=== PATIENT | female | born 1935 | race Caucasian/White ===

== ENCOUNTER 2016-07-10 11:26 | Outpatient (CLI) | END 2016-07-10 11:27 | disposition home or self-care (01) | LOC: LAB 11:26 | PROVIDERS: ATTEND General Practice | DX: R23.8 Other skin changes (principal) | CPT/HCPCS: 36415; 87252 ==

== ENCOUNTER 2016-07-15 13:49 | Outpatient (CLI) ==
--- NOTE | 2016-07-15 15:48 | DI ---
Examination: Five radiographic images of the lumbar spine. Comparison: 11/09/2007. Reason for study: Lumbago. FINDINGS: There are five lumbar type vertebral bodies with sacralization of L5. There is narrowing of the intervertebral body disc space is seen throughout the lumbar spine. Vertebral body heights are well maintained. There is no evidence for acute fracture or listhesis. Degenerative changes ar e noted with anterior osteophyte formation. There is straightening of the lumbar lordotic curve. Fo raminal narrowing bilaterally may be accentuated by positioning. Impression: 1. No obvious fracture or listhesis. 2. Sacralization of L5. 3. Degenerative disease.
--- NOTE | 2016-07-15 15:53 | DI ---
EXAM: Three views of the thoracic spine HISTORY: Back pain most pronounced on the right side. COMPARISON: Lumbar spine x-rays same day FINDINGS: The thoracic spine demonstrates no acute compression fracture or subluxation. Scattered d isc space narrowing is present. There is no osteophyte formation. There is no lytic or blastic les ion. The adjacent soft tissues are unremarkable. 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
== END 2016-07-15 13:50 | disposition home or self-care (01) ==
LOC: RAD 13:49
PROVIDERS: ATTEND General Practice
DX: M54.41 Lumbago with sciatica, right side (principal)

== ENCOUNTER 2016-10-24 14:05 | Outpatient (CLI) ==
--- NOTE | 2016-10-24 14:40 | DI ---
EXAM: Three views of the left shoulder HISTORY: Left shoulder pain. COMPARISON: Left humerus x-rays 04/29/2011 FINDINGS: There is no cortical irregularity or displaced fracture of the left shoulder. There is mi ld degenerative change of the acromioclavicular joint and glenohumeral joint. There is no lytic or blastic lesion. The soft tissues are unremarkable. There is no lytic or blastic lesion identified. IMPRESSION: Degenerative disease of the left shoulder with no displaced fracture or dislocation.
== END 2016-10-24 14:06 | disposition home or self-care (01) ==
LOC: RAD 14:05
PROVIDERS: ATTEND General Practice
DX: M25.512 Pain in left shoulder (principal)

== ENCOUNTER 2016-11-11 10:50 | Outpatient (CLI) | payer OTHER ==
[2016-11-11 13:21] LABS: BASOPHILS # (AUTO) 0.1 K/uL (0-0.2); BASOPHILS % (AUTO) 0.9 % (0.0-3.0); EOSINOPHILS # (AUTO) 0.2 K/ul (0.0-0.7); EOSINOPHILS % (AUTO) 2.4 % (0.0-7.0); HEMATOCRIT 40.9 % (37.0-47.0); HEMOGLOBIN 13.7 g/dl (12.0-16.0); IMMATURE GRANULOCYTE % (AUTO) 0.4 % (0.0-5.0); LYMPHOCYTES # (AUTO) 1.4 K/uL (0.60-3.4); LYMPHOCYTES % (AUTO) 14.1 (10.0-50.0); MEAN CORPUSCULAR HGB CONC 33.5 (31.8-35.4); MEAN CORPUSCULAR VOLUME 92.5 fl (81.0-99.0); MONOCYTES # (AUTO) 0.6 K/uL (0.4-2.0); MONOCYTES % (AUTO) 6.2 (0-10); NEUTROPHILS # (AUTO) 7.4 K/ul (2.0-6.9); PLATELET COUNT 339 10^3/uL (140-440); RED BLOOD COUNT 4.42 10^6/ul (4.20-5.40)
[2016-11-11 13:37] LABS: ALBUMIN 3.9 g/dL (3.4-5.0); ALBUMIN/GLOBULIN RATIO 1.22; ANION GAP 12.9; BILIRUBIN,TOTAL 0.55 mg/dL (0.00-1.20); BILIRUBIN,URINE Negative (NEGATIVE); BUN/CREATININE RATIO 18.18; CALCIUM 9.6 mg/dL (8.2-10.2); CHOL/HDL RATIO 3.7 (4.5-5.5); CREATININE 0.66 mg/dL (0.60-1.30); KETONES,URINE Negative (NEGATIVE); LEUKOCYTE ESTERASE ,URINE Trace (NEGATIVE); NITRITE,URINE Negative (NEGATIVE); POTASSIUM 3.9 mmol/L (3.5-5.10); PROTEIN,URINE Negative (NEGATIVE); TOTAL PROTEIN 7.1 g/dL (5.8-8.1); URINE, BLOOD Trace-lysed (NEGATIVE)
[2016-11-11 13:38] LABS: ADD URINE MICROSCOPIC YES
[2016-11-11 13:42] LABS: BACTERIA,URINE TRACE (NOT PRESENT)
== END 2016-11-11 10:51 | disposition home or self-care (01) ==
LOC: LAB 10:50
PROVIDERS: ATTEND General Practice
DX: E11.9 Type 2 diabetes mellitus without complications (principal); E78.5 Hyperlipidemia, unspecified; Z79.899 Other long term (current) drug therapy
CPT/HCPCS: 36415; 80053; 80061; 81001; 85025

== ENCOUNTER 2017-07-15 10:07 | Outpatient (CLI) | END 2017-07-15 10:08 | disposition home or self-care (01) | LOC: LAB 10:07 | PROVIDERS: ATTEND General Practice | DX: E78.5 Hyperlipidemia, unspecified (principal); E11.9 Type 2 diabetes mellitus without complications; Z79.899 Other long term (current) drug therapy | CPT/HCPCS: 36415; 80053; 80061; 81001; 83036; 85025 ==

== ENCOUNTER 2017-11-14 11:15 | Outpatient (CLI) | END 2017-11-14 11:16 | disposition home or self-care (01) | LOC: FCC-LAB 11:15 | PROVIDERS: ATTEND General Practice | DX: E78.5 Hyperlipidemia, unspecified (principal); E11.9 Type 2 diabetes mellitus without complications; Z79.899 Other long term (current) drug therapy | CPT/HCPCS: 36415; 80053; 80061; 81001; 83036; 85025; 87086 ==

== ENCOUNTER 2018-11-05 08:49 | Outpatient (CLI) | payer OTHER ==
--- NOTE | 2018-11-05 11:24 | DI ---
EXAM: CHEST FRONTAL AND LATERAL VIEWS HISTORY: Chest pain. COMPARISON: None FINDINGS: Heart size is within normal limits. There is ectasia of the thoracic aorta. There are sc attered calcifications suggesting old granulomatous disease. No acute infiltrates are seen. No vasc ular congestion. There is no consolidation, visible pleural fluid or pneumothorax. Bones reveal no acute fracture. IMPRESSION: No acute cardiopulmonary process.
--- NOTE | 2018-11-05 11:27 | DI ---
EXAM: Five views of the cervical spine. History: Cervical neck pain. Findings: No acute fracture or subluxation of the cervical spine. No prevertebral soft tissue swell ing. Predental space is not widened. Moderate to severe disc space narrowing from C3-C7 with endpla te sclerosis and osteophyte formation. Multilevel bilateral uncovertebral and facet hypertrophy with moderate bony neural foraminal narrowing on the left at C3-4 and mild to moderate on the left at C4- 5. Impression: 1. No acute osseous abnormality of the cervical spine. 2. Degenerative changes
--- NOTE | 2018-11-05 11:27 | DI ---
EXAM: Thoracic spine three views HISTORY: Back pain FINDINGS: Bones appear demineralized. There is sinusoidal scoliosis of the thoracolumbar spine conve x to the right in the mid thoracic level estimated at about 6 degrees. There is no fracture or loss of vertebral body height. No spondylolisthesis. At least mild diffuse degenerative disc disease. IMPRESSION: 1. Demineralization and scoliosis. Diffuse degenerative changes. No fracture or loss of vertebral body height.
== END 2018-11-05 08:50 | disposition home or self-care (01) ==
LOC: RHC-LAB 08:49 → FCC-LAB 08:50
PROVIDERS: ATTEND General Practice
DX: M54.6 Pain in thoracic spine (principal); M54.2 Cervicalgia; R07.9 Chest pain, unspecified; E11.9 Type 2 diabetes mellitus without complications; E78.5 Hyperlipidemia, unspecified; Z79.899 Other long term (current) drug therapy
CPT/HCPCS: 36415; 80053; 80061; 81001; 85025